=== PATIENT | female | born 1965 ===

== ENCOUNTER 2021-02-28 12:13 | Day surgery (SDC) | payer OTHER ==
[~2021-02-28 12:13] MED LIST: CELEXA10 MG PO; COZAAR50 MG PO; HYDROCHLOROTH12.5 MG PO; RESTORIL PO
== END 2021-02-28 17:45 | disposition home or self-care (01) ==
LOC: CIR.AMB 12:13
PROVIDERS: ATTEND Obstetrics & Gynecology Obstetrics
DX: N93.8 Other specified abnormal uterine and vaginal bleeding (principal)

== ENCOUNTER 2021-07-04 14:02 | Inpatient (IN) | payer OTHER ==
[~2021-07-04] VITALS: Ht 157.5 cm; Wt 68.9 kg
[2021-07-07] MEDS ORDERED: RESTORIL30 M1 PO (13:05)
== END 2021-07-09 18:43 | disposition home or self-care (01) | DRG 743 ==
LOC: SURH 07-07 06:28 → O/R 07-07 06:28 → SURH 07-07 13:59
PROVIDERS: ADMIT Obstetrics & Gynecology Obstetrics; ATTEND Obstetrics & Gynecology Obstetrics
PROC: 0UT70ZZ Resection of Bilateral Fallopian Tubes, Open Approach (ICD-10-PCS; 2021-07-07)
PROC: 0UT20ZZ Resection of Bilateral Ovaries, Open Approach (ICD-10-PCS; 2021-07-07)
PROC: 0UT90ZL Resection of Uterus, Supracervical, Open Approach (ICD-10-PCS; principal; 2021-07-07 12:00)
DX: D25.1 Intramural leiomyoma of uterus (principal); N80.0 Endometriosis of uterus; Z20.822 Contact with and (suspected) exposure to COVID-19; N84.0 Polyp of corpus uteri